=== PATIENT | female | born 1990 | race Caucasian/White ===

== ENCOUNTER 2018-05-06 12:35 | Emergency (ER) | payer OTHER ==
[2018-05-06] MEDS ORDERED: NS 1,000 ML IV ONE (14:32)
--- NOTE | 2018-05-06 14:38 | EDPHY ---
H & P Stated Complaint: Dizzy, light headed on and off for 3 weeks, getting worse. Time Seen by Provider: 05/06/18 14:15 - Personal History LMP (Females 10-55): 22-28 Days Ago Current Tetanus Diphtheria and Acellular Pertussis (TDAP): Yes - Medical/Surgical History Hx Asthma: No Hx Chronic Respiratory Disease: No Hx Diabetes: No Hx Cardiac Disease: No Hx Renal Disease: No Hx Cirrhosis: No Hx Alcoholism: No Hx HIV/AIDS: No Hx Splenectomy or Spleen Trauma: No Other PMH: Denies - Social History Smoking Status: Former smoker Constitutional: Initial Vital Signs Temperature (C) 36.6 C 05/06/18 12:42 Heart Rate 83 05/06/18 12:42 Respiratory Rate 16 05/06/18 12:42 Blood Pressure 135/77 H 05/06/18 12:42 O2 Sat (%) 96 05/06/18 12:42 O2 Delivery Mode Room Air Allergies/Adverse Reactions: No Known Allergies Allergy (Unverified 05/06/18 12:45) Home Medications: Medication Instructions Recorded NK [No Known Home Meds] 05/06/18 Medical Decision Making ED Course/Re-evaluation: CHIEF COMPLAINT: Dizzy, lightheaded for several weeks HISTORY OF PRESENT ILLNESS: The patient is a 27 y/o female complaining of dizziness and lightheadedness for the past few weeks, worse for the last 4 days. She reports an episode of rapid heart rate yesterday, kidney pain a week ago, and pain in the upper left region of her chest intermittently. Each of these symptoms resolved on their own with time. She has an associated feeling of being "off" mentally, and numbness in hands and feet when she is lightheaded. She denies any other associated symptoms. She denies syncope. She denies recent illness or other trigger. She reports family history of congenital bicuspid aortic valve and type 1 diabetes. REVIEW OF SYSTEMS: A 10 system review of systems was performed and is negative with the exception of the elements mentioned in the history of present illness. PHYSICAL EXAM: HR, BP, O2 Sat, RR. Temp noted General Appearance: Alert, well hydrated, appropriate, and non-toxic appearing. Head: Atraumatic without scalp tenderness or obvious injury Eyes: Pupils equal, round, reactive to light and accommodation, EOMI, no trauma , no injection. Ears: Clear bilaterally, no perforation, normal landmarks Nose: Atraumatic, no rhinorrhea, clear. Throat: There is no erythema or exudates, no lesions, normal tonsils, mucus membranes moist. Neck: Supple, 2+ carotid upstroke, nontender, no lymphadenopathy. Respiratory: No retractions, no distress, no wheezes, and no accessory muscle use. Lungs are clear to auscultation bilaterally. Cardiovascular: Regular rate and rhythm, no murmurs, rubs, or gallops. Bilateral carotid, radial, dorsalis pedis, and posterior tibial pulses intact. Good capillary refill all extremities. Gastrointestinal: Abdomen is soft, nontender, non-distended, no masses, no rebound, no guarding, no peritoneal signs. Musculoskeletal: Normal active ROM of all extremities, atraumatic. Neurological: Alert, appropriate, and interactive. Skin: No rashes, good turgor, no nodules on palpation. 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 Sinus mechanism. See hard copy and/ or "tracemaster" electronic copy for interpretation. DIFFERENTIAL DIAGNOSIS: The differential diagnosis for this patient included but was not limited to anxiety, electrolyte abnormality, heart defect, and thyroid condition. MEDICAL DECISION MAKING: The patient presents with dizziness, lightheadedness, and several other intermittent symptoms. Exam is normal. Plan for labs including CBC, basic metabolic panel, d-dimer, beta-hcg, and troponin, and EKG. 15:40 - The patient's labs and EKG are not concerning. Plan for outpatient follow up. I informed the patient of the results of her work up. I feel she is safe for discharge. The patient agrees to this course of action. - Data Points Laboratory Results: Laboratory Results 05/06/18 14:40 05/06/18 14:40 05/06/18 05/06/18 05/06/18 15:00 14:43 14:40 WBC RBC Hgb Hct MCV MCH MCHC RDW Plt Count MPV Neut % (Auto) Lymph % (Auto) Person % (Auto) Eos % (Auto) Baso % (Auto) Nucleat RBC Rel Count Absolute Neuts (auto) Absolute Lymphs (auto) Absolute Monos (auto) Absolute Eos (auto) Absolute Basos (auto) Absolute Nucleated RBC Immature Gran % Immature Gran # D-Dimer < 0.27 ug/mLFEU ug/mLFEU (0.00-0.50) Sodium Potassium Chloride Carbon Dioxide Anion Gap BUN Creatinine Estimated GFR Glucose Calcium POC Troponin I 0.00 ng/mL ng/mL (0.00-0.08) Beta HCG, Qual NEGATIVE 05/06/18 05/06/18 14:40 14:40 WBC 8.21 10^3/uL 10^3/uL (3.80-9.50) RBC 4.49 10^6/uL 10^6/uL (4.18-5.33) Hgb 14.5 g/dL g/dL (12.6-16.3) Hct 42.4 % % (38.0-47.0) MCV 94.4 fL fL (81.5-99.8) MCH 32.3 pg pg (27.9-34.1) MCHC 34.2 g/dL g/dL (32.4-36.7) RDW 13.1 % % (11.5-15.2) Plt Count 206 10^3/uL 10^3/uL (150-400) MPV 10.1 fL fL (8.7-11.7) Neut % (Auto) 74.6 % H % (39.3-74.2) Lymph % (Auto) 18.4 % % (15.0-45.0) Person % (Auto) 5.6 % % (4.5-13.0) Eos % (Auto) 0.5 % L % (0.6-7.6) Baso % (Auto) 0.4 % % (0.3-1.7) Nucleat RBC Rel Count 0.0 % % (0.0-0.2) Absolute Neuts (auto) 6.13 10^3/uL 10^3/uL (1.70-6.50) Absolute Lymphs (auto) 1.51 10^3/uL 10^3/uL (1.00-3.00) Absolute Monos (auto) 0.46 10^3/uL 10^3/uL (0.30-0.80) Absolute Eos (auto) 0.04 10^3/uL 10^3/uL (0.03-0.40) Absolute Basos (auto) 0.03 10^3/uL 10^3/uL (0.02-0.10) Absolute Nucleated RBC 0.00 10^3/uL 10^3/uL (0-0.01) Immature Gran % 0.5 % % (0.0-1.1) Immature Gran # 0.04 10^3/uL 10^3/uL (0.00-0.10) D-Dimer Sodium 138 mEq/L mEq/L (135-145) Potassium 3.9 mEq/L mEq/L (3.5-5.2) Chloride 107 mEq/L mEq/L (97-110) Carbon Dioxide 21 mEq/l L mEq/l (22-31) Anion Gap 10 mEq/L mEq/L (6-14) BUN 11 mg/dL mg/dL (7-23) Creatinine 0.6 mg/dL mg/dL (0.6-1.0) Estimated GFR > 60 Glucose 89 mg/dL mg/dL (70-100) Calcium 9.6 mg/dL mg/dL (8.5-10.4) POC Troponin I Beta HCG, Qual Medications Given: Discontinued Medications Sodium Chloride (Ns) 1,000 mls @ 0 mls/hr IV EDNOW ONE; Wide Open PRN Reason: Protocol Stop: 05/06/18 14:33 Last Admin: 05/06/18 15:00 Dose: 1,000 mls Point of Care Test Results: Chemistry 05/06/18 14:43 POC Troponin I 0.00 ng/mL ng/mL (0.00-0.08) Departure - Departure Disposition: Home, Routine, Self-Care Clinical Impression: Intermittent palpitations Condition: Good Instructions: Heart Palpitations (ED) Additional Instructions: 1. Please follow up with cardiology. 2. Return to the Emergency Department for any worsening of condition including difficulty breathing, and syncope. Referrals: Martin Jordan DO [Primary Care Provider] - As per Instructions Report Scribed for: Alexander White Report Scribed by: Shanel Enciso Date of Report: 05/06/18 Time of Report: 15:44
[2018-05-06 14:57] LABS: PLATELET COUNT 206 10^3/uL (150-400)
[2018-05-06 16:08] VITALS: BP 111/62
--- NOTE | 2018-05-06 20:35 | CPEKG ---
Test Reason : OPEN Blood Pressure : / mmHG Vent. Rate : 081 BPM Atrial Rate : 080 BPM P-R Int : 138 ms QRS Dur : 073 ms QT Int : 362 ms P-R-T Axes : 056 070 054 degrees QTc Int : 421 ms Sinus rhythm Confirmed by Alexander White ([id number]) on 05/06/2018 8:34:51 PM Referred By: Confirmed By:Alexander White
== END 2018-05-06 16:05 | disposition home or self-care (01) ==
DX: R00.2 Palpitations (principal); R42 Dizziness and giddiness; E86.9 Volume depletion, unspecified; Z87.891 Personal history of nicotine dependence
CPT/HCPCS: 84484-PO